=== PATIENT | female | born 1955 | race Caucasian/White ===

== ENCOUNTER → 2023-09-16 14:38 | Outpatient (REF) | payer OTHER, SELFPAY | LOC: WDC 14:38 | PROVIDERS: ATTENDING PHYSICIAN Internal Medicine | DX: Z12.31 Encounter for screening mammogram for malignant neoplasm of breast (principal) | CPT/HCPCS: 77063; 77067 ==

== ENCOUNTER 2023-10-01 14:53 | Emergency (ER) | payer OTHER, SELFPAY ==
[2023-10-01 15:07] VITALS: BP 139/80
[2023-10-01] MEDS: TYLENOL 650 MG PO (15:14)
[2023-10-01 15:21] LABS: % Basophils 0.2 % (0-2); % Eosinophils 0.3 % (0-6); % Immature Granulocytes 0.4 % (0-0.5); % Lymphocytes 9.1 % (20.5-51.1); % Monocytes 8.2 % (1.7-9.3); % Neutrophils 81.8 % (42.2-75.2); Absolute Immature Granulocytes 0.1 10^3/uL (0-0.05); Absolute Lymphocytes 1.2 10^3/uL (1.2-3.4); Absolute Neutrophils 10.3 10^3/uL (1.4-6.5); Hematocrit 40.4 % (37.0-47.0); Hemoglobin 13.8 g/dL (12.0-16.0); Mean Corp Hgb Conc. 34.2 g/dL (33.0-37.0); Mean Corpuscular Hgb 29.7 pg (27.0-31.0); Mean Corpuscular Volume 86.9 fL (81.0-99.0); Mean Platelet Volume 10.4 fL (7.4-10.4); Nucleated Red Blood Cells % 0 %; Platelet Count 304 10^3/uL (130-400); Red Blood Cell Count 4.65 10^6/uL (4.20-5.40); Red Cell Dist. Width 14.4 % (11.5-14.5); White Blood Cell Count 12.6 10^3/uL (4.8-10.8)
[2023-10-01 15:35] LABS: ALT (SGPT) 120 U/L (0-35); AST (SGOT) 64 U/L (14-36); Albumin 4.1 g/dl (3.5-5.0); Alkaline Phosphatase 138 U/L (38-126); Blood Urea Nitrogen 23 mg/dl (7-17); Calcium 10.3 mg/dl (8.4-10.2); Carbon Dioxide 30 mmol/L (22-30); Chloride 97 mmol/L (98-107); Glucose 106 mg/dl (70-99); Potassium 3.5 mmol/L (3.5-5.1); Sodium 139 mmol/L (135-145); Total Bilirubin 1.4 mg/dl (0.2-1.3); Total Protein 6.8 g/dl (6.3-8.2); eGFR > 60.00
[2023-10-01 18:35] VITALS: BMI 23.9
--- NOTE | 2023-10-01 18:37 | ED.GENMED ---
History of Present Illness
General
Chief Complaint: Abdominal Pain
Source: patient
Exam Limitations: none
Time Seen by Provider: 10/01/23 18:16
Travel History
Have you had any contact with someone who has COVID-19?: No
Do you have any symptoms of coronavirus? Fever > 100 degrees, chills, cough, shortness of breath, sore throat, loss of taste or smell, muscle aches, or headache?: No
History of Present Illness
History of Present Illness:
This is a 68 year old female that comes in with c/o left sided abd pain. States that she went to see the PCP today due to severe pain on the left sided. States that right now it does seem better. States that she started with pain on Saturday afternoon
and a low grade fever. States that her PCP told her to come to the ER. States that her temp was 100.2 and that she has been nauseated. Denies any chills, chest pain, SOB, vomiting, diarrhea, headache, urinary burning.
Past History
Past History
ED Past Medical History: Asthma, HTN, Psychiatric (Depression) and Other (Brain aneurysm, )
ED Past Surgical History: Cholecystectomy and Other (AVM surgery of the cerebellum, Hernia repair, )
Social History
Tobacco: Non-smoker
Alcohol: Occasional
Drug: None
Personal:
Living: with family
Review of Systems
Review of Systems
All Other Systems: ROS reviewed and negative except as documented in HPI and ROS
Constitutional: Reports fever; Denies chills
EENT: Reports no symptoms
Respiratory: Reports no symptoms; Denies cough or trouble breathing
Cardiac: Reports no symptoms; Denies chest pain
ABD/GI: Reports abdominal pain and nausea; Denies vomiting or diarrhea
: Reports no symptoms; Denies dysuria, frequency or urgency
Musculoskeletal: Reports no symptoms
Skin: Reports no symptoms
Neurological: Reports no symptoms; Denies dizzy or headache
Psychiatric: Reports no symptoms
Phy Exam
General Physical Exam
General Presentation: no apparent distress
General age: appears stated age
General Skin: warm and dry
General Habitus: normal
General Mental: alert
General Hydration: appears well hydrated
ENT Exam
ENT Exam: TM's normal, pharynx normal and neck supple
Eye Exam
Eye Exam: EOMI
Cardiovascular Exam
Cardiovascular Exam: regular rate/rhythm, no edema, no murmur and normal peripheral pulses
Pulmonary Exam
Pulmonary Exam: lungs clear, no respiratory distress, no rales, chest non tender, no crackles, no rhonchi, no wheezing and no cough
Gastrointestinal Exam
Gastrointestinal Exam: normal bowel sounds, soft, no organomegaly, no pulsatile mass, non distended and tender (LLQ tenderness with palpation)
Musculoskeletal Exam
Musculoskeletal Exam: full ROM and no edema
Skin Exam
Skin Exam: normal color, warm/dry, no rash and no petechia
Psychiatric Exam
Psychiatric Exam: normal mood/affect
Course
Orders/Labs/Results
Orders:
Orders
10/01/23 15:12
Acetaminophen [Tylenol] 650 mg .ROUTE .STK-MED ONE
10/01/23 15:14
Complete Blood Count/With Diff Urgent
Comprehensive Metabolic Panel Urgent
Acetaminophen [Tylenol] 650 mg PO NOW STA
10/01/23 18:37
CT Abd/pel W Iv And Oral Contr Urgent
Comment:
Reason For Exam: left sided abd pain
0.9% Sodium Chloride 1000 ml [Nss] 1,000 ml IV BOLUS
Iohexol [Omnipaque] See Protocol PO NOW STA
Abnormal Lab Results
10/01/23
15:14
WBC 12.6 H 10^3/uL
(4.8-10.8)
Abs Immat Gran (auto) 0.1 H 10^3/uL
(0-0.05)
Absolute Neuts (auto) 10.3 H 10^3/uL
(1.4-6.5)
Absolute Monos (auto) 1.0 H 10^3/uL
(0.1-0.6)
Neutrophils % 81.8 H %
(42.2-75.2)
Lymphocytes % 9.1 L %
(20.5-51.1)
Chloride 97 L mmol/L
(98-107)
BUN 23 H mg/dl
(7-17)
Glucose 106 H mg/dl
(70-99)
Calcium 10.3 H mg/dl
(8.4-10.2)
Total Bilirubin 1.4 H mg/dl
(0.2-1.3)
AST 64 H U/L
(14-36)
ALT 120 H U/L
(0-35)
Alkaline Phosphatase 138 H U/L
(38-126)
10/01/23 15:14
10/01/23 15:14
Leukocytosis, Dehydration, Glucose nonfasting. AST/ALT elevation. Alk phos elevatioin.
Vital Signs
Initial and Last Documented VS:
Initial Vital Signs
Temp Pulse Resp BP Pulse Ox
100.2 F 93 18 139/80 96
10/01/23 15:07 10/01/23 15:07 10/01/23 15:07 10/01/23 15:07 10/01/23 15:07
Last Documented Vital Signs
Temp Pulse Resp BP Pulse Ox
100.2 F 71 18 139/80 98
10/01/23 15:07 10/01/23 18:40 10/01/23 18:40 10/01/23 15:07 10/01/23 18:40
MDM/Problems Addressed
Differential Diagnosis Includes:
Diverticulitis, Diverticulitis with abscess
MDM/Problems Addressed:
This is a 68 year old female that comes in with c/o left lower abd pain. States that this started on Saturday. Patient went to her PCP today and was sent in to the ER
Will get labs and CT scan. Offered patient pain medication but she refused. Will also give IV fluids
Back into see patient. Explained that her CT shows she has diverticulitis. There is also a renal lesion that will need further evaluation with MRI that can be ordered by the PCP. Patient to return with any concerns.
Chronic conditions affecting care:
Diverticulitis
Acute Exacerbation and/or Progression of Chronic Illness:
Diverticulitis
*Radiology
Radiology exam reviewed: radiology read reviewed (CT-Acute uncomplicated diverticulitis of the proximal sigmoid colon. Indeterminate 1.2cm lower pole right renal lesion, suspicious for neoplasm. Recommend outpatient workup with dedicated renal mass
protocal MRI abdomen without and with gadolinium contrast. )
*Pulse Oximetry
Patient hypoxic: no
*EKG
Interpreted by ED Provider?: NA
Rate: EKG- N/A
*[employer] Interpretation
Rate: [employer]- N/A
*Critical Care Note
Total Time (30-74mins, 75-104mins- exclusive of procedures): Not Applicable
ED Attending Note
-
Portions of this chart may have been created with voice recognition software.� Occasional wrong word or��sound alike� substitutions may have occurred due to the inherent limitations of voice recognition software.
Discharge Plan
Departure
Patient Disposition: Home (Routine Discharge)
Date of Disposition: 10/01/23
Time of Disposition: 21:11
Patient with high blood pressure during this ER visit?: Yes
Condition: Good
Covid-19: Not Applicable
Discharge Problem:
Diverticulitis
Instructions: Diverticulitis (DC), BLOOD PRESSURE
Prescriptions:
New
levofloxacin 500 mg tablet
500 mg PO DAILY Qty: 9 0RF
metronidazole 500 mg tablet
500 mg PO TID Qty: 29 0RF
No Action
losartan-hydrochlorothiazide 1 TAB tablet
1 tab PO DAILY
Patient Comments:
Confirmed with [facility] pharmacy [phone]
Referrals:
Ilda Plummer MD [Family Provider] - Follow up in 2-3 days
Activity Restrictions/Additional Instructions:
As discussed, your blood work shows you have a slightly elevation of the WBC's. This goes along with the finding on CT scan of Diverticulitis. You have been given oral antibiotics and a prescription has been sent to your Pharmacy. Please take as
directed. There is also noted on the left kidney a lesion that will need further evaluation with MRI. This will need with and without contrast and can be ordered by the family doctor. IF YOU HAVE INCREASED OR CHANGING PAIN, FEVER, OR YOU HAVE ANY
OTHER CONCERNS PLEASE RETURN TO THE EMERGENCY ROOM.
Interventions
Interventions:
*Risk Screen - Suicide Last Done: 10/01/23 15:07
*General Assessment Last Done: 10/01/23 15:07
*Neglect/Abuse Screening Last Done: 10/01/23 15:07
KG-Jbxraj-Rfgjqwjzsw Assessment Last Done: 10/01/23 18:40
Discharge Date and Time
Print Language: ANDORRAN
[2023-10-01] MEDS: OMNIPAQUE 50 ML PO (18:56)
[2023-10-01] MEDS: NSS 1000 IV (18:56)
[2023-10-01] MEDS: LEVAQUIN 500 MG PO (21:22)
[2023-10-01] MEDS: FLAGYL 500 MG PO (21:23)
== END 2023-10-01 21:57 | disposition home or self-care (01) ==
LOC: EMR 14:53
PROVIDERS: Emergency Medicine; EMERGENCY PHYSICIAN Student in an Organized Health Care Education/Training Program; FAMILY PHYSICIAN Internal Medicine
DX: K57.92 Diverticulitis of intestine, part unspecified, without perforation or abscess without bleeding (principal); J45.909 Unspecified asthma, uncomplicated; I10 Essential (primary) hypertension; F32.A Depression, unspecified; I72.9 Aneurysm of unspecified site; E86.0 Dehydration; Z90.49 Acquired absence of other specified parts of digestive tract
CPT/HCPCS: 99284; 74177; 80053; 85025; Q9967

== ENCOUNTER → 2023-11-25 10:48 | Outpatient (REF) | payer OTHER, SELFPAY | LOC: MRI 3T 10:48 | PROVIDERS: ATTENDING PHYSICIAN Internal Medicine | DX: N28.89 Other specified disorders of kidney and ureter (principal) | CPT/HCPCS: 74183; A9575 ==

== ENCOUNTER → 2023-12-27 11:39 | Outpatient (REF) | payer OTHER, SELFPAY | LOC: RADI 11:39 | PROVIDERS: ATTENDING PHYSICIAN Surgery | DX: N28.89 Other specified disorders of kidney and ureter (principal) ==

== ENCOUNTER → 2024-01-01 12:38 | Outpatient (REF) | payer OTHER, SELFPAY | LOC: HWRAD 12:38 | PROVIDERS: ATTENDING PHYSICIAN Obstetrics & Gynecology | DX: R93.89 Abnormal findings on diagnostic imaging of other specified body structures (principal) | CPT/HCPCS: 76830; 76856 ==

== ENCOUNTER 2024-02-19 07:10 | Day surgery (SDC) | payer OTHER, SELFPAY ==
[2024-02-19] VITALS (15 sets, daily range): BP systolic 62–148; BP diastolic 68–88; BMI 22.3
[2024-02-19 07:38] LABS: % Basophils 0.5 % (0-2); % Eosinophils 1.7 % (0-6); % Immature Granulocytes 0.3 % (0-0.5); % Lymphocytes 28.5 % (20.5-51.1); % Monocytes 4.8 % (1.7-9.3); % Neutrophils 64.2 % (42.2-75.2); Absolute Eosinophils 0.1 10^3/uL (0-0.7); Absolute Lymphocytes 1.8 10^3/uL (1.2-3.4); Absolute Monocytes 0.3 10^3/uL (0.1-0.6); Absolute Neutrophils 4.1 10^3/uL (1.4-6.5); Hematocrit 42.8 % (37.0-47.0); Hemoglobin 14.7 g/dL (12.0-16.0); Mean Corp Hgb Conc. 34.3 g/dL (33.0-37.0); Mean Corpuscular Hgb 30.8 pg (27.0-31.0); Mean Corpuscular Volume 89.5 fL (81.0-99.0); Mean Platelet Volume 10.3 fL (7.4-10.4); Nucleated Red Blood Cells % 0 %; Platelet Count 262 10^3/uL (130-400); Red Blood Cell Count 4.78 10^6/uL (4.20-5.40); Red Cell Dist. Width 13.3 % (11.5-14.5); White Blood Cell Count 6.3 10^3/uL (4.8-10.8)
[2024-02-19 07:50] LABS: INR 0.92; PT 12.3 Sec (11.4-14.6)
[2024-02-19 07:51] LABS: APTT 24.9 Sec (23.4-35.0)
[2024-02-19 08:03] LABS: ALT (SGPT) 25 U/L (0-35); AST (SGOT) 25 U/L (14-36); Albumin 4.2 g/dl (3.5-5.0); Alkaline Phosphatase 79 U/L (38-126); Blood Urea Nitrogen 27 mg/dl (7-17); Carbon Dioxide 31 mmol/L (22-30); Chloride 102 mmol/L (98-107); Glucose 104 mg/dl (70-99); LDH 165 U/L (120-246); Potassium 3.9 mmol/L (3.5-5.1); Sodium 143 mmol/L (135-145); Total Bilirubin 0.6 mg/dl (0.2-1.3); Total Protein 6.6 g/dl (6.3-8.2); eGFR > 60.00
[2024-02-19] MEDS: NSS IV (16:49)
[2024-02-19] MEDS: NSS 1000 IV (16:52)
[2024-02-19] MEDS: TYLENOL 650 MG PO (19:15)
[2024-02-20] MEDS: NSS IV ×2 (00:22→09:20)
[2024-02-20 07:28] VITALS: BP 137/71
--- NOTE | 2024-02-20 07:28 | W.PN.GENERIC ---
Assessment / Plan
-
69 yo female with right renal mass who underwent Right renal MWA
She is doing well this morning. Tolerating POs and voiding spontaneously.
Plan to discharge today
Will plan for FU CT in 3 months
I spent over 30 minutes in counseling and coordination of care with the patient, reviewing previous medical records, laboratory studies and imaging as well as discussing the procedure and expected post procedure course with the patient
Physician Progress Note
Subjective
This is a 69-year-old female with past medical history significant for hypertension and AV malformation with subsequent repair. She had a CT scan in September 2023 which demonstrated a 1.2 cm right lower pole renal lesion suspicious for renal cell
carcinoma. She had a follow-up MRI November 25, 2023 which revealed a 1.5 cm enhancing mass from the lateral lower pole of the right kidney consistent with renal neoplasm. She underwent MWA of this lesion yesterday. She is feeling well this morning.
She is tolerating POs. She is voiding spontaneously. She denies any flank pain, hematuria, urinary urgency or frequency. She has had no fever, chills, abdominal pain, nausea, vomiting.
PMH: Hypertension, diverticulitis and AV malformation .
PSH: Cholecystectomy and AV malformation repair in 1998.
Social History: Patient denies tobacco use
Allergies: NKDA.
Current Medications: Hydrochlorothiazide 12.5 mg qd, losartan 50 mg qd, pantoprazole 40 mg qd, Centrum silver, Osteo Bi-Flex, vitamin C.
Objective
Vital Signs
Temp Pulse Resp BP Pulse Ox
98.4 F 59 18 124/80 99
02/19/24 23:50 02/19/24 23:50 02/19/24 23:50 02/19/24 23:50 02/19/24 23:50
Lab Results
02/19/24 07:28
02/19/24 07:29
Physical examination: This is a well-nourished, well-developed 69-year-old female who is awake alert and oriented in no acute distress. Her color is good. Her skin is warm and dry. Her neck is supple without thyromegaly. Her heart is regular. Her
lungs are clear throughout. Her abdomen is soft nontender nondistended with bowel sounds present. No CVA tenderness. Right flank dressing is CDI. No hematoma. No lower extremity edema.
--- NOTE | 2024-02-20 08:40 | CM ---
Peggy came in for an outpatient Renal Mass Ablation yesterday and is cleared for discharge today. She lives with her in a 2 story home with 3 entry steps; powder room on first floor, full bath on second level; finished basement.
Peggy has been cleared for discharge to home today. She is (I) amb and adls. Has Medicare A and B as well as [place] 66 plan with Rx, Vision and Dental benefits.
Plan to return home with no needs.
PCP:Dr. John
Pharmacy: [facility] in [place]
--- NOTE | 2024-02-20 19:31 | PTCARENOTE ---
02/19/24
Report called to Haritha VIVAR on 4E. Pt transported with belongings to room, tolerated transport well. Pt tolerating PO food and fluids. mcgraw intact.
== END 2024-02-20 09:44 | disposition home or self-care (01) ==
LOC: RADI 07:10
PROVIDERS: ATTENDING PHYSICIAN Radiology Diagnostic Radiology; FAMILY PHYSICIAN Internal Medicine; REFERRING PHYSICIAN Surgery
DX: N28.89 Other specified disorders of kidney and ureter (principal); D68.8 Other specified coagulation defects
CPT/HCPCS: 50592; 88305; 36415; 77013; 80053; 82248; 83615; 85025; 85610; 85730; 88341; 88342

== ENCOUNTER → 2024-07-13 09:01 | Outpatient (REF) | payer OTHER, SELFPAY | LOC: RAD 09:01 | PROVIDERS: ATTENDING PHYSICIAN Surgery; FAMILY PHYSICIAN Internal Medicine | DX: N28.89 Other specified disorders of kidney and ureter (principal) | CPT/HCPCS: 74170; Q9967 ==

== ENCOUNTER → 2024-09-30 18:06 | Outpatient (REF) | payer OTHER, SELFPAY | LOC: WDC 18:06 | PROVIDERS: ATTENDING PHYSICIAN Obstetrics & Gynecology; FAMILY PHYSICIAN Internal Medicine | DX: Z12.31 Encounter for screening mammogram for malignant neoplasm of breast (principal) | CPT/HCPCS: 77063; 77067 ==

== ENCOUNTER → 2025-03-22 12:38 | Outpatient (REF) | payer OTHER, SELFPAY | LOC: MRI 3T 12:38 | PROVIDERS: ATTENDING PHYSICIAN Surgery; FAMILY PHYSICIAN Internal Medicine | DX: N28.89 Other specified disorders of kidney and ureter (principal) | CPT/HCPCS: 74183; A9575 ==